=== PATIENT | male | born 1975 | race Caucasian/White ===

== ENCOUNTER → 2017-06-22 12:53 | Outpatient (CLI) | payer BC | END | disposition home or self-care (01) | LOC: D.MRI 12:53 | DX: M54.5 Low back pain (principal) ==

== ENCOUNTER → 2018-07-18 15:07 | Outpatient (CLI) | payer BC | END | disposition home or self-care (01) | LOC: D.CT 15:07 | DX: F17.201 Nicotine dependence, unspecified, in remission (principal) ==